=== PATIENT | male | born 1955 | race Caucasian/White ===

== ENCOUNTER 2018-04-07 14:02 | Emergency (ER) | payer MEDICARE, OTHER ==
[~2018-04-07] VITALS: Ht 175.3 cm; Wt 70.0 kg
[~2018-04-07 14:02] MED LIST: ALBU6.7H INH; ATEN50TA PO; GABA-532 PO; HYDR25CA PO; LISI1TAB11 PO; MULT-955 PO; OMEP20CA10 PO; PSYL3.4P5 PO
[2018-04-07] MEDS ORDERED: aspirin 81mg tab.chew PO ONE (14:25)
[2018-04-07] MEDS ORDERED: nitroGLYCERIN 0.4mg SUBLingual tab SL PRN (14:25)
[2018-04-07 15:56] LABS: BASOPHILS # (AUTO) 0.1 X10'3 (0-0.2); BASOPHILS % (AUTO) 1.4 % (0-1); EOSINOPHILS # (AUTO) 0.2 X10'3 (0-0.9); HEMATOCRIT 44.3 % (42.0-52.0); HEMOGLOBIN 14.7 g/dl (14.0-17.9); LYMPHOCYTES # (AUTO) 1.5 X10'3 (1.1-4.8); LYMPHOCYTES % (AUTO) 20.3 % (21-51); MEAN CORPUSCULAR HGB CONC 33.3 % (33.0-36.5); MEAN PLATELET VOLUME 7.5 FL (7.4-10.4); MONOCYTES # (AUTO) 0.5 X10'3 (0-0.9); MONOCYTES % (AUTO) 6.8 % (2-12); NEUTROPHILS # (AUTO) 4.9 X10'3 (1.8-7.7); NEUTROPHILS % (AUTO) 68.5 % (42-75); PLATELET COUNT 309 X10'3 (140-440); RED BLOOD COUNT 4.76 X10'6 (4.70-6.10); RED CELL DISTRIBUTION WIDTH 15.3 % (11.5-14.5); WHITE BLOOD COUNT 7.2 X10'3 (4.5-11.0)
[2018-04-07] MEDS ORDERED: ipratropium/albuterol 3ml nebule NEB ONE ×2 (16:05→17:00)
[2018-04-07 16:16] VITALS: BP 138/110
[2018-04-07] MEDS ORDERED: normal saline 1000ml 1,000 ML IV ONE (16:20)
[2018-04-07] MEDS ORDERED: piperacillin/tazo 3.375gm/50ml 50 ML IV ONE (17:25)
[2018-04-07 17:32] LABS: ALANINE AMINOTRANSFERASE 66 U/L (12-78); ALBUMIN 3.1 G/DL (3.4-5.0); ALBUMIN/GLOBULIN RATIO 0.9 (1.1-1.5); ALKALINE PHOSPHATASE 57 IU/L (46-116); ANION GAP 12 (8-16); ASPARTATE AMINO TRANSFERASE 44 U/L (10-37); BILIRUBIN,TOTAL 0.9 MG/DL (0.1-1.0); BLOOD UREA NITROGEN 19 MG/DL (7-18); BUN/CREATININE RATIO 17.8 (5.4-32.0); CALCIUM 8.2 MG/DL (8.5-10.1); CHLORIDE 106 MMOL/L (99-107); CREATININE 1.07 MG/DL (0.60-1.10); GLUCOSE 93 MG/DL (70-104); POTASSIUM 3.5 MMOL/L (3.5-5.1); SODIUM 141 MMOL/L (135-145); TOTAL CARBON DIOXIDE 23.4 MMOL/L (24-32); TOTAL PROTEIN 6.5 G/DL (6.4-8.2); eGFR 70 ML/MIN
[2018-04-07] MEDS ORDERED: ONDA4TAB9 SL (17:49)
[2018-04-07] MEDS ORDERED: AMOX-419 PO (17:52)
[2018-04-07] MEDS ORDERED: CefTRIAXone 1000mg IM Kit (w/lidocaine diluent) IM ONE (18:00)
== END 2018-04-07 18:53 | disposition home or self-care (01) ==
LOC: ER 14:02
DX: K81.9 Cholecystitis, unspecified (principal); R10.13 Epigastric pain; R10.33 Periumbilical pain; I11.0 Hypertensive heart disease with heart failure; I50.9 Heart failure, unspecified; I25.2 Old myocardial infarction; F12.90 Cannabis use, unspecified, uncomplicated; Z59.0 Homelessness; Z79.899 Other long term (current) drug therapy
CPT/HCPCS: 71045; 74176; 76700; 80053; 83880; 85025; 93005; 93971; 94640; 94760; 96361; 96365; 96372; 99285; J0696; J2543; 36415; 84484

== ENCOUNTER 2018-04-08 14:25 | Inpatient (IN) | payer MEDICARE, OTHER ==
[~2018-04-08] VITALS: Ht 175.3 cm; Wt 76.8 kg
[~2018-04-08 14:25] MED LIST changes: +AMOX-419 PO; +ONDA4TAB9 SL
[2018-04-08 15:09] LABS: BASOPHILS % (AUTO) 0.6 % (0-1); EOSINOPHILS # (AUTO) 0.2 X10'3 (0-0.9); EOSINOPHILS % (AUTO) 3.1 % (0-6); HEMATOCRIT 41.8 % (42.0-52.0); HEMOGLOBIN 14.1 g/dl (14.0-17.9); LYMPHOCYTES # (AUTO) 1.4 X10'3 (1.1-4.8); LYMPHOCYTES % (AUTO) 19.2 % (21-51); MEAN CORPUSCULAR HEMOGLOBIN 31.3 PG (27.0-31.0); MEAN CORPUSCULAR HGB CONC 33.7 % (33.0-36.5); MEAN PLATELET VOLUME 7.7 FL (7.4-10.4); MONOCYTES # (AUTO) 0.6 X10'3 (0-0.9); NEUTROPHILS # (AUTO) 5.4 X10'3 (1.8-7.7); NEUTROPHILS % (AUTO) 69.1 % (42-75); PLATELET COUNT 284 X10'3 (140-440); WHITE BLOOD COUNT 7.6 X10'3 (4.5-11.0)
[2018-04-08 15:15] LABS: PROTHROMBIN TIME 12.4 SECONDS (9.0-12.0)
[2018-04-08 15:16] LABS: INR 1.2 INR
[2018-04-08 15:19] LABS: ALANINE AMINOTRANSFERASE 54 U/L (12-78); ALBUMIN 2.9 G/DL (3.4-5.0); ALBUMIN/GLOBULIN RATIO 0.9 (1.1-1.5); ALKALINE PHOSPHATASE 54 IU/L (46-116); ANION GAP 13 (8-16); ASPARTATE AMINO TRANSFERASE 42 U/L (10-37); BILIRUBIN,TOTAL 0.5 MG/DL (0.1-1.0); BLOOD UREA NITROGEN 27 MG/DL (7-18); BUN/CREATININE RATIO 21.6 (5.4-32.0); CALCIUM 8.1 MG/DL (8.5-10.1); CHLORIDE 107 MMOL/L (99-107); CREATININE 1.25 MG/DL (0.60-1.10); GLUCOSE 122 MG/DL (70-104); SODIUM 144 MMOL/L (135-145); TOTAL CARBON DIOXIDE 24.5 MMOL/L (24-32); TOTAL PROTEIN 6.2 G/DL (6.4-8.2); eGFR 59 ML/MIN
[2018-04-08] MEDS ORDERED: piperacillin/tazo 3.375gm/50ml 50 ML IV ONE (15:55)
[2018-04-08] MEDS ORDERED: normal saline 1000ml 1,000 ML IV SCH (17:12)
[2018-04-08] MEDS ORDERED: acetaminophen 325mg tablet PO PRN ×2 (17:15)
[2018-04-08] MEDS ORDERED: magnesium hydroxide 30ml (MOM) UD suspension PO PRN (17:15)
[2018-04-08] MEDS ORDERED: potassium Cl 40MEQ/NS 500ml 500 ML IV PRN ×4 (17:15→20:05)
[2018-04-08] MEDS ORDERED: mag hydrox/Alum hydrox/simeth 30ml oral suspension PO PRN (17:15)
[2018-04-08] MEDS ORDERED: magnesium 4gm in 100ml NS 100 ML IV PRN ×2 (17:15→20:05)
[2018-04-08] MEDS ORDERED: ondansetron/PF 4mg/2ml inj IV PRN (17:15)
[2018-04-08] MEDS ORDERED: magnesium Cl slow-release 64mg tablet PO PRN ×2 (17:15→20:05)
[2018-04-08] MEDS ORDERED: magnesium 1gm/100ml D5W IVPB 100 ML IV PRN ×2 (17:15→20:05)
[2018-04-08] MEDS ORDERED: HYDROmorphone 1 mg/ml syringe IV PRN ×2 (17:15)
[2018-04-08] MEDS ORDERED: potassium Cl 20 mEq SR tablet PO PRN ×4 (17:15→20:05)
[2018-04-08] MEDS: HYDROcodone/acetaminophen 5mg/325mg tablet PO PRN (19:54)
[2018-04-08 20:00] VITALS: BP 136/101
[2018-04-08] MEDS: sodium chloride 0.45% 1,000 ML IV SCH (20:47)
[2018-04-08] MEDS ORDERED: temazepam 15mg capsule PO PRN (21:00)
[2018-04-09] VITALS: BP_SYST 140; BP_SYST 142; BP_DIAS 106; BP_DIAS 108
[2018-04-09] MEDS: piperacillin/tazo 3.375gm/50ml 50 ML IV SCH ×3 (00:14→16:56)
[2018-04-09 04:34] VITALS: BP 140/106
[2018-04-09 05:59] LABS: BASOPHILS % (AUTO) 0.5 % (0-1); EOSINOPHILS # (AUTO) 0.3 X10'3 (0-0.9); EOSINOPHILS % (AUTO) 4.1 % (0-6); HEMOGLOBIN 14.6 g/dl (14.0-17.9); LYMPHOCYTES # (AUTO) 1.7 X10'3 (1.1-4.8); LYMPHOCYTES % (AUTO) 25.3 % (21-51); MEAN CORPUSCULAR HEMOGLOBIN 31.3 PG (27.0-31.0); MEAN CORPUSCULAR VOLUME 91.9 FL (78-98); MEAN PLATELET VOLUME 7.8 FL (7.4-10.4); MONOCYTES # (AUTO) 0.6 X10'3 (0-0.9); MONOCYTES % (AUTO) 9.4 % (2-12); NEUTROPHILS # (AUTO) 4.3 X10'3 (1.8-7.7); NEUTROPHILS % (AUTO) 60.7 % (42-75); PLATELET COUNT 248 X10'3 (140-440); RED BLOOD COUNT 4.68 X10'6 (4.70-6.10); RED CELL DISTRIBUTION WIDTH 13.9 % (11.5-14.5); WHITE BLOOD COUNT 6.9 X10'3 (4.5-11.0)
[2018-04-09 06:22] LABS: ALANINE AMINOTRANSFERASE 52 U/L (12-78); ALBUMIN 2.8 G/DL (3.4-5.0); ALBUMIN/GLOBULIN RATIO 0.8 (1.1-1.5); ALKALINE PHOSPHATASE 51 IU/L (46-116); ANION GAP 12 (8-16); ASPARTATE AMINO TRANSFERASE 36 U/L (10-37); BILIRUBIN,TOTAL 0.9 MG/DL (0.1-1.0); BLOOD UREA NITROGEN 23 MG/DL (7-18); BUN/CREATININE RATIO 19.8 (5.4-32.0); CALCIUM 7.9 MG/DL (8.5-10.1); CHLORIDE 105 MMOL/L (99-107); CREATININE 1.16 MG/DL (0.60-1.10); GLUCOSE 93 MG/DL (70-104); MAGNESIUM 1.5 MG/DL (1.5-2.4); POTASSIUM 3.5 MMOL/L (3.5-5.1); SODIUM 141 MMOL/L (135-145); TOTAL CARBON DIOXIDE 23.8 MMOL/L (24-32); TOTAL PROTEIN 6.1 G/DL (6.4-8.2); eGFR 64 ML/MIN
[2018-04-09] MEDS ORDERED: K and/or MAG REPLACEMENT MC SCH (08:00)
[2018-04-09 09:01] VITALS: BP 112/80
[2018-04-09 09:35] LABS: TROPONIN I < 0.04 NG/ML (0.0-0.05)
[2018-04-09] MEDS ORDERED: pneumococcal 23-VAL P-sac vacc 25 mcg/0.5ml vial IMVAC ONE (10:00)
[2018-04-09 12:00] VITALS: BP 146/98
[2018-04-09] MEDS ORDERED: psyllium seed 3.4 gm packet PO PRN (13:50)
[2018-04-09] MEDS ORDERED: albuterol 2.5 MG/3 ML nebule NEB PRN (14:00)
[2018-04-09] MEDS ORDERED: sincalide inj 0 MCG in normal saline 50ml IV soln 50 ML IV ONE (16:50)
[2018-04-09 19:00] VITALS: BP 126/83
[2018-04-09] MEDS: HYDROcodone/acetaminophen 5mg/325mg tablet PO PRN (20:09)
[2018-04-09] MEDS: gabapentin 300mg capsule PO SCH (20:09)
[2018-04-09] MEDS: lactobacillus rhamnosus 10,000 MMU CELLS/CAPSULE PO SCH (20:09)
[2018-04-09] MEDS: hydrOXYzine 25 MG tablet PO SCH (20:09)
[2018-04-09] MEDS ORDERED: potassium Cl 20 mEq SR tablet PO ONE (20:56)
[2018-04-09] MEDS ORDERED: magnesium 1gm/100ml D5W IVPB 100 ML IV ONE (21:00)
[2018-04-10] VITALS: BP 129/68
[2018-04-10] MEDS: piperacillin/tazo 3.375gm/50ml 50 ML IV SCH ×2 (00:26→08:00)
[2018-04-10 05:12] LABS: BASOPHILS % (AUTO) 0.7 % (0-1); EOSINOPHILS # (AUTO) 0.3 X10'3 (0-0.9); EOSINOPHILS % (AUTO) 5.1 % (0-6); HEMATOCRIT 45.5 % (42.0-52.0); HEMOGLOBIN 15.4 g/dl (14.0-17.9); LYMPHOCYTES # (AUTO) 1.6 X10'3 (1.1-4.8); LYMPHOCYTES % (AUTO) 24.3 % (21-51); MEAN CORPUSCULAR HEMOGLOBIN 31.3 PG (27.0-31.0); MEAN CORPUSCULAR HGB CONC 33.8 % (33.0-36.5); MEAN CORPUSCULAR VOLUME 92.6 FL (78-98); MEAN PLATELET VOLUME 7.8 FL (7.4-10.4); MONOCYTES # (AUTO) 0.5 X10'3 (0-0.9); MONOCYTES % (AUTO) 8.3 % (2-12); NEUTROPHILS # (AUTO) 4.1 X10'3 (1.8-7.7); NEUTROPHILS % (AUTO) 61.6 % (42-75); PLATELET COUNT 249 X10'3 (140-440); RED BLOOD COUNT 4.91 X10'6 (4.70-6.10); RED CELL DISTRIBUTION WIDTH 13.9 % (11.5-14.5); WHITE BLOOD COUNT 6.4 X10'3 (4.5-11.0)
[2018-04-10 05:31] LABS: ALANINE AMINOTRANSFERASE 45 U/L (12-78); ALBUMIN 2.7 G/DL (3.4-5.0); ALBUMIN/GLOBULIN RATIO 0.8 (1.1-1.5); ALKALINE PHOSPHATASE 53 IU/L (46-116); ANION GAP 10 (8-16); ASPARTATE AMINO TRANSFERASE 32 U/L (10-37); BILIRUBIN,TOTAL 0.8 MG/DL (0.1-1.0); BLOOD UREA NITROGEN 23 MG/DL (7-18); BUN/CREATININE RATIO 17.8 (5.4-32.0); CALCIUM 7.9 MG/DL (8.5-10.1); CHLORIDE 104 MMOL/L (99-107); CREATININE 1.29 MG/DL (0.60-1.10); GLUCOSE 94 MG/DL (70-104); MAGNESIUM 1.6 MG/DL (1.5-2.4); POTASSIUM 4.2 MMOL/L (3.5-5.1); SODIUM 139 MMOL/L (135-145); TOTAL PROTEIN 6.1 G/DL (6.4-8.2); eGFR 56 ML/MIN
[2018-04-10] MEDS: sodium chloride 0.45% 1,000 ML IV SCH (06:32)
[2018-04-10 08:00] VITALS: BP 130/88
[2018-04-10] MEDS: hydrOXYzine 25 MG tablet PO SCH ×2 (08:00→20:07)
[2018-04-10] MEDS ORDERED: HYDR-4383 PO (11:03)
[2018-04-10] MEDS: pantoprazole 40mg Tablet.DR PO SCH (11:09)
[2018-04-10] MEDS: lisinopril 20mg tablet PO SCH (11:10)
[2018-04-10] MEDS: multivitamins, therapeutics tablet PO SCH (11:10)
[2018-04-10] MEDS: atenolol 50mg tablet PO SCH (11:10)
[2018-04-10] MEDS: gabapentin 300mg capsule PO SCH ×2 (11:11→20:07)
[2018-04-10] MEDS: HYDROchlorothiazide 12.5mg capsule PO SCH (11:14)
[2018-04-10] MEDS ORDERED: FURO-150 PO (11:15)
[2018-04-10] MEDS: lactobacillus rhamnosus 10,000 MMU CELLS/CAPSULE PO SCH ×2 (11:19→20:07)
[2018-04-10 12:00] VITALS: BP 150/94
[2018-04-10] MEDS ORDERED: aminophylline 250mg/10ml inj. IV PRN (13:55)
[2018-04-10] MEDS ORDERED: regadenoson 0.4mg/5ml syringe IV PRN (13:55)
[2018-04-10] MEDS ORDERED: nitroGLYCERIN 0.4mg SUBLingual tab SL PRN (13:55)
[2018-04-10] MEDS ORDERED: metoprolol tartrate 1mg/ml inj IV PRN (13:55)
[2018-04-10] MEDS: furosemide 40mg/4ml inj IV SCH ×2 (17:27→20:07)
[2018-04-10] MEDS ORDERED: albuterol 2.5 MG/3 ML nebule NEB PRN (17:50)
[2018-04-10 19:00] VITALS: BP 140/88
[2018-04-10] MEDS: HYDROcodone/acetaminophen 10/325mg tab PO PRN (19:10)
[2018-04-11] VITALS (11 sets, daily range): BP systolic 107–144; BP diastolic 63–99
[2018-04-11 05:09] LABS: BASOPHILS # (AUTO) 0.1 X10'3 (0-0.2); BASOPHILS % (AUTO) 0.8 % (0-1); EOSINOPHILS # (AUTO) 0.4 X10'3 (0-0.9); EOSINOPHILS % (AUTO) 6.4 % (0-6); HEMATOCRIT 45.1 % (42.0-52.0); HEMOGLOBIN 14.8 g/dl (14.0-17.9); LYMPHOCYTES # (AUTO) 1.4 X10'3 (1.1-4.8); LYMPHOCYTES % (AUTO) 21.3 % (21-51); MEAN CORPUSCULAR HEMOGLOBIN 30.6 PG (27.0-31.0); MEAN CORPUSCULAR HGB CONC 32.8 % (33.0-36.5); MEAN CORPUSCULAR VOLUME 93.3 FL (78-98); MEAN PLATELET VOLUME 7.4 FL (7.4-10.4); MONOCYTES # (AUTO) 0.8 X10'3 (0-0.9); NEUTROPHILS # (AUTO) 3.8 X10'3 (1.8-7.7); NEUTROPHILS % (AUTO) 59.5 % (42-75); PLATELET COUNT 273 X10'3 (140-440); RED BLOOD COUNT 4.84 X10'6 (4.70-6.10); RED CELL DISTRIBUTION WIDTH 15.1 % (11.5-14.5); WHITE BLOOD COUNT 6.5 X10'3 (4.5-11.0)
[2018-04-11 05:34] LABS: ALANINE AMINOTRANSFERASE 41 U/L (12-78); ALBUMIN 2.7 G/DL (3.4-5.0); ALBUMIN/GLOBULIN RATIO 0.8 (1.1-1.5); ALKALINE PHOSPHATASE 53 IU/L (46-116); ANION GAP 7 (8-16); ASPARTATE AMINO TRANSFERASE 33 U/L (10-37); BILIRUBIN,TOTAL 0.6 MG/DL (0.1-1.0); BLOOD UREA NITROGEN 21 MG/DL (7-18); BUN/CREATININE RATIO 19.3 (5.4-32.0); CALCIUM 8.2 MG/DL (8.5-10.1); CHLORIDE 101 MMOL/L (99-107); CREATININE 1.09 MG/DL (0.60-1.10); GLUCOSE 104 MG/DL (70-104); MAGNESIUM 1.4 MG/DL (1.5-2.4); POTASSIUM 3.5 MMOL/L (3.5-5.1); SODIUM 138 MMOL/L (135-145); TOTAL CARBON DIOXIDE 29.7 MMOL/L (24-32); eGFR 69 ML/MIN
[2018-04-11] MEDS ORDERED: regadenoson 0.4mg/5ml syringe IV ONE (09:58)
[2018-04-11] MEDS ORDERED: aminophylline inj. 10 ML IV ONE (09:58)
[2018-04-11] MEDS: atenolol 50mg tablet PO SCH (11:23)
[2018-04-11] MEDS: lisinopril 20mg tablet PO SCH (11:23)
[2018-04-11] MEDS: HYDROcodone/acetaminophen 10/325mg tab PO PRN (11:23)
[2018-04-11] MEDS: lactobacillus rhamnosus 10,000 MMU CELLS/CAPSULE PO SCH (11:24)
[2018-04-11] MEDS: gabapentin 300mg capsule PO SCH (11:24)
[2018-04-11] MEDS: hydrOXYzine 25 MG tablet PO SCH (11:24)
[2018-04-11] MEDS: pantoprazole 40mg Tablet.DR PO SCH (11:24)
[2018-04-11] MEDS: HYDROchlorothiazide 12.5mg capsule PO SCH (11:24)
[2018-04-11] MEDS: furosemide 40mg/4ml inj IV SCH (11:24)
[2018-04-11] MEDS: multivitamins, therapeutics tablet PO SCH (11:31)
== END 2018-04-11 16:55 | disposition home or self-care (01) | DRG 444 ==
LOC: ER 14:26 → ED HOLD 17:12 → SUR 3N 19:25
PROVIDERS: ADMIT Family Medicine; ATTEND Internal Medicine
PROC: 3E0234Z Introduction of Serum, Toxoid and Vaccine into Muscle, Percutaneous Approach (ICD-10-PCS; principal; 2018-04-09)
PROC: CF241ZZ Tomographic (Tomo) Nuclear Medicine Imaging of Gallbladder using Technetium 99m (Tc-99m) (ICD-10-PCS; 2018-04-10)
PROC: 4A02XM4 Measurement of Cardiac Total Activity, External Approach (ICD-10-PCS; 2018-04-11)
PROC: 3E073KZ Introduction of Other Diagnostic Substance into Coronary Artery, Percutaneous Approach (ICD-10-PCS; 2018-04-11)
DX: K80.20 Calculus of gallbladder without cholecystitis without obstruction (principal); I50.23 Acute on chronic systolic (congestive) heart failure; I42.9 Cardiomyopathy, unspecified; B19.20 Unspecified viral hepatitis C without hepatic coma; E78.5 Hyperlipidemia, unspecified; I11.0 Hypertensive heart disease with heart failure; I25.10 Atherosclerotic heart disease of native coronary artery without angina pectoris; F15.90 Other stimulant use, unspecified, uncomplicated; I49.3 Ventricular premature depolarization; F12.90 Cannabis use, unspecified, uncomplicated; K44.9 Diaphragmatic hernia without obstruction or gangrene; K74.60 Unspecified cirrhosis of liver; Z59.0 Homelessness; I25.2 Old myocardial infarction; Z79.899 Other long term (current) drug therapy; Z23 Encounter for immunization; Z86.010 Personal history of colon polyps; Z81.1 Family history of alcohol abuse and dependence; Z80.9 Family history of malignant neoplasm, unspecified; Z84.89 Family history of other specified conditions
CPT/HCPCS: 36415; 78227; 78452; 80053; 83735; 83880; 84484; 85025; 85610; 87070; 93005; 93017; 93306; 94640; 96374; 99285; A9500; A9537; J0280; J1170; J1940; J2543; J7030; Q0177